=== PATIENT | male | born 1955 | race Caucasian/White ===

== ENCOUNTER 2023-10-31 12:21 | Outpatient (CLI) | payer MEDICARE ==
[~2023-10-31] VITALS: Ht 180.3 cm; Wt 87.5 kg
[~2023-10-31 12:21] MED LIST: ALBU10.7 INH; ALPR1TAB7 PO; FLUT1AER; GUAI237L83 PO
[2023-10-31] MEDS ORDERED: IODIXANOL 320 MG/ML INFUS..BTL 100ML IV ONE (12:47)
[2023-10-31 13:10] LABS: BASOPHILS # (AUTO) 0.1 X10'3 (0-0.2); BASOPHILS % (AUTO) 1.3 % (0-1); EOSINOPHILS # (AUTO) 0.2 X10'3 (0-0.9); EOSINOPHILS % (AUTO) 2.4 % (0-6); HEMATOCRIT 41.8 % (42.0-52.0); HEMOGLOBIN 13.6 g/dl (14.0-17.9); LYMPHOCYTES # (AUTO) 1.3 X10'3 (1.1-4.8); LYMPHOCYTES % (AUTO) 17.9 % (21-51); MEAN CORPUSCULAR HEMOGLOBIN 29.2 PG (27.0-31.0); MEAN CORPUSCULAR HGB CONC 32.6 g/dL (33.0-36.5); MEAN CORPUSCULAR VOLUME 89.7 FL (78-98); MEAN PLATELET VOLUME 7.1 FL (7.4-10.4); MONOCYTES # (AUTO) 0.5 X10'3 (0-0.9); MONOCYTES % (AUTO) 7.5 % (2-12); NEUTROPHILS # (AUTO) 5.1 X10'3 (1.8-7.7); NEUTROPHILS % (AUTO) 70.9 % (42-75); PLATELET COUNT 354 X10'3 (140-440); RED BLOOD COUNT 4.67 X10'6 (4.70-6.10); RED CELL DISTRIBUTION WIDTH 13.9 % (11.5-14.5); WHITE BLOOD COUNT 7.3 X10'3 (4.5-11.0)
[2023-10-31 13:18] LABS: APTT 37 SECONDS (22-32)
[2023-10-31 13:27] LABS: ALANINE AMINOTRANSFERASE 15 U/L (12-78); ALBUMIN 3.6 G/DL (3.4-5.0); ALBUMIN/GLOBULIN RATIO 0.9 (1.1-1.5); ALKALINE PHOSPHATASE 82 IU/L (46-116); ANION GAP 7 (8-16); ASPARTATE AMINO TRANSFERASE 13 U/L (10-37); BILIRUBIN,TOTAL 0.5 MG/DL (0.1-1.0); BLOOD UREA NITROGEN 11 MG/DL (7-18); BUN/CREATININE RATIO 13.6 (10.0-20.0); CALCIUM 8.9 MG/DL (8.5-10.1); CHLORIDE 101 MMOL/L (99-107); CREATININE 0.81 MG/DL (0.60-1.10); GLUCOSE 112 MG/DL (70-104); POTASSIUM 4.4 MMOL/L (3.5-5.1); PRO BRAIN NATRIURETIC PEPTIDE 136 PG/ML (0-125); SODIUM 140 MMOL/L (135-145); TOTAL PROTEIN 7.5 G/DL (6.4-8.2); eGFR > 90 ML/MIN
[2023-10-31] MEDS ORDERED: metoprolol tartrate 1mg/ml inj IV ONE ×2 (14:30→14:47)
[2023-10-31] MEDS ORDERED: atropine 0.1mg/ml 10ml syringe ONE (14:30)
[2023-10-31 14:38] VITALS: BP 119/68; PULSE 92
[2023-10-31 14:48] VITALS: BP 124/72; PULSE 84
[2023-10-31 14:50] VITALS: BP 132/78; PULSE 74
[2023-10-31 15:11] LABS: ABG BASE EXCESS 2.3 mmol/L (-2.0-2.0); ABG HCO3 29.1 mmol/L (22.0-26.0); ABG OXYGEN SATURATION 97.2 % (94-97); ABG PCO2 (T) 54.2 mmHg (35.0-48.0); ABG PH (T) 7.348 (7.340-7.440); ALLEN'S TEST POSITIVE; FCOHb 0.2 % (0.0-3.9); FHHb 2.8 % (0.0-5.0); FLOW 2 L/min; FMetHb 0.4 % (0.0-1.5); FO2Hb 96.6 % (94-97); MODE NASAL CANNULA; TOTAL HEMOGLOBIN 14.1 G/dl (14.0-17.9)
[2023-10-31] MEDS: albuterol 2.5 MG/3 ML nebule NEB PRN (15:43)
[2023-10-31 15:46] VITALS: PULSE 86; RESP 13; O2SAT 94
== END 2023-10-31 23:59 | disposition home or self-care (01) ==
LOC: RAD 12:21
PROVIDERS: ATTEND Internal Medicine Cardiovascular Disease
DX: Z01.818 Encounter for other preprocedural examination (principal); J43.2 Centrilobular emphysema; J98.4 Other disorders of lung; I35.0 Nonrheumatic aortic (valve) stenosis; R06.02 Shortness of breath; N28.1 Cyst of kidney, acquired; I65.29 Occlusion and stenosis of unspecified carotid artery; K57.30 Diverticulosis of large intestine without perforation or abscess without bleeding; Q25.46 Tortuous aortic arch; Z90.89 Acquired absence of other organs
CPT/HCPCS: 36415; 36600; 71046; 71275; 74174; 75572; 80053; 82803; 83880; 85018; 85025; 85610; 85730; 94060; 94727; 94729; 94760; J3490; Q9967; A4615; J0461